=== PATIENT | male | born 1950 | race Caucasian/White ===

== ENCOUNTER 2020-08-11 06:09 | Day surgery (SDC) | payer MEDICARE, OTHER ==
[2020-08-10 11:21] VITALS: BMI 25.0
[2020-08-11] MEDS ORDERED: Glycopyrrolate 0.2 MG/ML 5 ML SYRINGE ONE (06:59)
[2020-08-11 07:32] LABS: SARS-CoV-2 NAA Rapid Test Not Detected (NotDetected)
[2020-08-11] MEDS ORDERED: Lidocaine 1% PF 5 ML VIAL ONE (09:49)
[2020-08-11] MEDS ORDERED: PROPOFOL 200 MG/20 ML VIAL ONE (09:49)
--- NOTE | 2020-08-11 09:55 | OP ---
DATE OF PROCEDURE: 08/11/2020 PREPROCEDURE DIAGNOSIS: Prior history of colon polyps. POSTPROCEDURE DIAGNOSIS: Diverticulosis coli, otherwise normal colonoscopy. RECOMMENDATIONS: Repeat colonoscopy in 5 years. ANESTHESIA: TIVA. PROCEDURE IN DETAIL: After the patient was informed of the risks, benefits, and possible complications of endoscopy including perforation, bleeding, reaction to medication, and aspiration, informed consent was obtained. The patient was brought to endoscopy suite, where he was sedated in gradual fashion. Once he was comfortable, rectal examination was performed. The endoscope was advanced to the anal canal, through the colon. The cecum was identified by ileocecal valve and the appendiceal orifice. The prep was good. The scope was then slowly removed from the colon with good visualization of the mucosa. There were no polyps, lesions, or masses. There was scattered diverticula in the sigmoid colon without signs of inflammation. Retroflexed views in the rectum revealed small internal hemorrhoids and a small skin tag. The scope was then returned to its forward position. The colon was desufflated. The scope was removed. Job ID: [id number]
== END 2020-08-11 09:36 | disposition home or self-care (01) ==
LOC: SDC 06:09
PROVIDERS: ATTEND Internal Medicine Gastroenterology
PROC: 0DJD8ZZ Inspection of Lower Intestinal Tract, Via Natural or Artificial Opening Endoscopic (ICD-10-PCS; principal; 2020-08-11)
DX: Z12.11 Encounter for screening for malignant neoplasm of colon (principal); K57.30 Diverticulosis of large intestine without perforation or abscess without bleeding; K64.8 Other hemorrhoids; K64.4 Residual hemorrhoidal skin tags; I25.10 Atherosclerotic heart disease of native coronary artery without angina pectoris; E78.00 Pure hypercholesterolemia, unspecified; E78.5 Hyperlipidemia, unspecified; I10 Essential (primary) hypertension; I25.2 Old myocardial infarction; L40.9 Psoriasis, unspecified; J30.2 Other seasonal allergic rhinitis; Z86.010 Personal history of colon polyps; Z79.82 Long term (current) use of aspirin; Z79.899 Other long term (current) drug therapy; Z85.46 Personal history of malignant neoplasm of prostate; Z87.891 Personal history of nicotine dependence; Z20.822 Contact with and (suspected) exposure to COVID-19
CPT/HCPCS: G0121; U0002; J2704